=== PATIENT | female | born 1980 | race Caucasian/White ===

== ENCOUNTER 2023-10-04 08:21 | Emergency (ER) | payer SELFPAY ==
[2023-10-04 08:28] VITALS: BP 136/81; PULSE 66; RESP 16; TEMP 36.4; O2SAT 99
--- NOTE | 2023-10-04 09:01 | ED.EAR ---
HPI - Ear Problem General Chief complaint: Ear Stated complaint: Left Ear Pain Time Seen by Provider: 10/04/23 09:01 Source: patient, RN notes reviewed and old records reviewed Mode of arrival: ambulatory Limitations: no limitations History of Present Illness HPI Narrative: 43-year-old female to [facility] for complaint of left ear discomfort that started six days ago. Patient states that sensation was initially a tickle that first morning. Patient went to a water park later that today. patient states that on Friday she poured alcohol into her ear and attempt to treat it. Patient states that starting yesterday she noticed decrease in hearing and achiness in her ear. Patient denies fever, sore throat, headache, recent illness, cough, shortness of breath, allergies. Respirations even and nonlabored. Patient speaking in full sentences without difficulty. Patient able to tolerate fluids by mouth. No signs of acute distress. Related Data Home Medications Medication Instructions Recorded Confirmed levonorgestrel 21 mcg/24 hr (up to 1 device intrauterine ONCE 10/04/23 10/04/23 8 years) 52 mg intrauterine device (Mirena) Allergies Allergy/AdvReac Type Severity Reaction Status Date / Time No Known Allergies Allergy Verified 10/04/23 08:44 Review of Systems Review of Systems: All systems reviewed & are unremarkable except as noted in HPI and below Constitutional: Constitutional: Reports no additional constitutional complaints Eyes: Eyes: Reports no additional eye complaints ENT: Reports as per HPI and Reports otalgia Cardiovascular: Cardiovascular: Reports no additional cardiovascular complaints, Denies chest pain and Denies dyspnea Respiratory: Respiratory: Reports no additional respiratory complaints, Denies cough and Denies dyspnea Musculoskeletal: Musculoskeletal: Reports no additional musculoskeletal complaints Neurologic: Reports system reviewed and no additional complaints, except as documented Psychiatric: Psychiatric: Reports no additional psychiatric complaints PMFSH Comments At the time of my signature, I reviewed and agree with the nursing past medical, surgical, social, and family history. There is no relevant family history pertinent to the patient complaint. Exam Const: General: cooperative, healthy appearing, comfortable, no acute distress, alert and well nourished Nutritional Appearance: well nourished Orientation/consciousness: patient oriented x3 Limitations: no limitations HENMT: Head: normal to inspection Ears: Abnormal EAC present erythema on the left, edema on the left, EAC tenderness on the left and otic discharge purulent and TM abnormal bulging on the right, with fluid behind the TM on the right and with loss of landmarks on the right Face/Nose/Sinus: Normal external nose present, Normal nares present, normal facial exam, No erythema and No edema Face and sinus: normal facial exam, no erythema and no edema Mouth: Yes Normal oral and palatal mucosa present Throat: postnasal drainage Eyes: General: appearance normal, both eyes and all related structures Neck: Neck: normal visual inspection, full ROM and no meningeal signs Lymphatic: no lymphadenopathy noted and no lymphedema noted Chest: Chest palpation & inspection: normal inspection of the chest Resp: Effort & Inspection: normal respiratory effort and able to speak in complete sentences Auscultation: clear to auscultation bilaterally Cardio: Jugular venous distension: no JVD Rate: regular rate Rhythm: regular rhythm Back/Spine/Pelvis: Cervical Spine: cervical ROM normal Skin: General skin exam: normal color, no rashes or lesions noted and turgor normal Neuro: General: patient oriented x3, gait normal, moves all extremities and no meningeal signs Speech: normal speech Gait exam (Neuro): Normal gait present Extrem: General: normal to inspection and full ROM Psych: Appearance: grossly normal and well kempt Cour
== END 2023-10-04 09:20 | disposition home or self-care (01) ==
PROVIDERS: Emergency Provider Nurse Practitioner Family
DX: H66.93 Otitis media, unspecified, bilateral (principal)
CPT/HCPCS: 99213; G0463

== ENCOUNTER 2024-10-17 12:05 | Emergency (ER) | payer SELFPAY ==
--- OUTSIDE RECORDS SUMMARY | 2024-10-17 12:08 | XMS_ITS | Encounter Summary ---
Author Organization [facility] Address [address] [place] [address] Phone Care Team Providers Care Meter Calibrator Name Role Phone Neptali Bryan MD Primary Care Provider +- [phone] Iabn Cedeno MD Unavailable [phone] Encounter Details Date Type Department Care Team (Late st Contact Info) Description 12/11/2016 Orders Only [facility] [address] [place] [address] Sol Ennis MA Mass of breast, right (Primary Dx) Social History Tobacco Use Types Packs/Day Years Used Date Smoking Tobacco: Former Cigarettes Q uit: 12/14/2007 Alcohol Use Standard Drinks/Week Comments Yes 0 (1 standard drink = 0.6 oz pur e alcohol) Comments Unknown Sex and Gender Information Value Date Recorded Sex Assigned at Not on file 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
--- OUTSIDE RECORDS SUMMARY | 2024-10-17 12:08 | XMS_ITS | Continuity of Care Document ---
Author Organization [facility] Address [address] [place] [address] [address] [place] [address] Phone Care Team Providers Care Supervisor Operations Name Role Phone Lugo TAVON/Lida DE LA CRUZMacey Unavailable Kathleen vailable Procedures Procedure Date Progress Note Therapeutic Exercise Therapeutic Activities Neuromuscular Re-Ed Manual Therapy Hot or Cold Pack Therapeutic Exercise Therapeutic Activities Neuromuscular Re-Ed Manual Therapy Hot or Cold Pack Therapeutic Exercise Therapeutic Activities Neuromuscular Re-Ed Manual Therapy Hot or Cold Pack Syd Straps 2 Therapeutic Exercise Therapeutic Activities Neuromuscular Re-Ed Manual Therapy Hot or Cold Pack Therapeutic Exercise Therapeutic Activities Neuromuscular Re-Ed Progress Note Therapeutic Exercise Therapeutic Activities Neuromuscular Re-Ed Hot or Cold Pack Syd Straps 2 Therapeutic Exercise Therapeutic Activities Neuromuscular Re-Ed Hot or Cold Pack Therapeutic Exercise Therapeutic Activities Neuromuscular Re-Ed Hot or Cold Pack Therapeutic Exercise Therapeutic Activities Neuromuscular Re-Ed Hot or Cold Pack Therapeutic Exercise Therapeutic Activities Neuromuscular Re-Ed Hot or Cold Pack Therapeutic Exercise Therapeutic Activities Neuromuscular Re-Ed Hot or Cold Pack Progress Note Therapeutic Exercise Therapeutic Activities Neuromuscular Re-Ed Hot or Cold Pack Therapeutic Exercise Therapeutic Activities Neuromuscular Re-Ed Hot or Cold Pack OT Evaluation Moderate Complexity Therapeutic Exercise Hot or Cold Pack Advance Directives Directive Yes / No Effective Date File Name No Information Encounters Encounter Description Practice Location Reason(s) For Visit Diagnoses Date Provider Providers Copied on Encounter [facility], [place], [id number], [place] tel:[phone] [place] Pain in right handStiffness of right hand, not elsewhere classifiedEffusio n, right handWeaknessDisp fx of prox phalanx of r lit fngr, 7thD 9 Brittney Choudhury. [address] [facility], [address], [place], [facility], [place]. tel:[phone] Referring Provider: Hermila Willard, [address] [place] [address] [address], [place], [address]. tel:[phone] [facility], [place], [place], [id number], tel:[phone] [facility] Pain in right handStiffness of right hand, not elsewhere classifiedEffusio n, right handWeaknessDisp fx of prox phalanx of r lit fngr, 7thD Apr-0 5-201 9 Lugo Macey. [address] [facility], [address], [place], [address], [place]. tel:[phone] Referring Provider: Hermila Willard, [address] [place] [address] [address], [place], [address]. tel:[phone] [facility], [address], [place], [place], [id number], [place] tel:[phone] [facility] Pain in right handStiffness of right hand, not elsewhere classifiedEffusio n, right handWeaknessDisp fx of prox phalanx of r lit fngr, D Jun-2 2-201 9 Lugo Macey. [address] [place] [address], [address], [place], [address], [place]. tel:[phone] Referring Provider: Hermila Willard, [address] [place] [address] [address], [place], [address]. tel:[phone] [facility] [address], [place], [place], [id number], [place] tel:[phone] [facility] Pain in right handStiffness of right hand, not elsewhere classifiedEffusio n, right handWeaknessDisp fx of prox phalanx of r lit fngr, Jun-2 0-201 9 Janee Damian. [address] [place] [address], [address], [place], [address], [place]. tel:[phone] Referring Provider: Hermila Willard, [address] [place] [address] [address], [place], [address]. tel:[phone] [facility], [place], [place], [address], [place] tel:[phone] [facility] Pain in right handStiffness of right hand, not elsewhere classifiedEffusio n, right handWeaknessDisp fx of prox phalanx of r lit fngr, D Jun-1 5-201 9 Lugo Macey. [address] [place] [address], [address], [place], [address], [place]. tel:[phone] Referring Provider: Hermila Willard [address] [place] [address] [address], [place], [address]. tel:[phone] [facility], [place], [place], [address], [place] tel:[phone] [facility] Pain in right handStiffness of right hand, not elsewhere classifiedEffusio n, right handWeaknessDisp fx of prox phalanx of r lit fngr, D Jun-0 8-201 9 Lugo Macey. [address] [facility], [address], [place], [address], [place]. tel:[phone] Referring Provider: Hermila Willard [address] [place] [address] [address], [place], [address]. tel:[phone] [facility], [place], [place], [address], [place] tel:[phone] [facility] Pain in right handStiffness of right hand, not elsewhere classifiedEffusio n, right handWeaknessDisp fx of prox phalanx of r lit fngr, Jun-0 1-201 9 Lugo Macey. [address] [place] [address], [address], [place], [address], [place]. tel:[phone] Referring Provider: Hermila Willard [address] [place] [address] [address], [place], [address]. tel:[phone] [facility], [place], [place], [id number], [place] tel:[phone] [facility] Pain in right handStiffness of right hand, not elsewhere classifiedEffusio n, right handWeaknessDisp fx of prox phalanx of r lit fngr, 2 6201 9 Lugo Macey. [address] [facility], [address], [place], [address], [place]. tel:[phone] Referring Provider: Hermila Willard [address] [place] [address] [address], [place], [address]. tel:[phone] [facility], [place], [place], [id number], [place] tel:[phone] [facility] Pain in right handStiffness of right hand, not elsewhere classifiedEffusio n, right handWeaknessDisp fx of prox phalanx of r lit fngr, 9 Lugo Macey. [address] [facility], [address], [place], [address], [place]. tel:[phone] Referring Provider: Hermila Willard [address] [place] [address] [address], [place], [address]. tel:[phone] [facility], [place], [place], [id number], [place] tel:[phone] [facility] Pain in right handStiffness of right hand, not elsewhere classifiedEffusio n, right handWeaknessDisp fx of prox phalanx of r lit fngr, 9 Lugo Macey. [address] [place] [address], [address], [place], [address], [place]. tel:[phone] Referring Provider: Hermila Willard [address] [place] [address] [address], [place], [address]. tel:[phone] [facility], [place], [place], [address], [place] tel:[phone] [facility] Pain in right handStiffness of right hand, not elsewhere classifiedEffusio n, right handWeaknessDisp fx of prox phalanx of r lit fngr, 9 Lugo Macey. [address] [place] [address], [address], [place], [address], [place]. tel:[phone] Referring Provider: Hermila Willard [address] [place] [address] [address], [place], [address]. tel:[phone] [facility], [place], [place], [address], [place] tel:[phone] [facility] Pain in right handStiffness of right hand, not elsewhere classifiedEffusio n, right handWeaknessDisp fx of prox phalanx of r lit fngr, 8201 9 Lugo Macey. [address] [place] [address], [address], [place], [facility], . tel:[phone] Referring Provider: Hermila Willard [address] [place] [address] [address], [place], [facility]. tel:[phone] [facility] [facility], [place], [place], [address], [place] tel:[phone] [facility] Pain in right handStiffness of right hand, not elsewhere classifiedEffusio n, right handWeaknessDisp fx of prox phalanx of r lit fngr, 6-201 9 Lugo Macey. [address] [place] [address], [facility] [address], [place], [facility], [place]. tel:[phone] Referring Provider: Hermila Willard [address] [place] [address] [address], [place], [address]. tel:[phone] [facility], [place], [place], [address], [place] tel:[phone] [facility] Pain in right handStiffness of right hand, not elsewhere classifiedEffusio n, right handWeaknessDisp fx of prox phalanx of r lit fngr, 4201 9 Lugo Macey. [address] [place] [address], [address], [place], [facility], [place]. tel:[phone] Referring Provider: Hermila Willard [address] [place] [address] [address], [place], [address]. tel:[phone] Family History Family Member Type Diagnosis Age At Onset No Information Payers Payer name Insurance type Covered republican ID Authoriza perez(s) [facility] [id number] Social History Type Description Quantity Date Captured Comments Sex Female Smoking Status No Information Chief Complaint And Reason For Visit No Information Reason For Referral Reason For Referral No Information History Of Present Illness Encounter Date Complaint History Of Prese nt Illness No Information Functional Status Date Functional Assessmen t No Information Instructions Date Instruction Additional Infor mation No Information Assessments Type Assessment Date No Information Patient Care Teams Name Effective Dates (start - stop) Status Members No Information
--- OUTSIDE RECORDS SUMMARY | 2024-10-17 12:08 | XMS_ITS | Referral Summary ---
Author Organization [facility] [address] Address [address] [place] [address] Phone Care Team Providers Care Harbormaster Name Role Phone Neptali Bryan MD Primary Care Provider [phone] Iban Cedeno MD Unavailable [phone] Allergies No known active allergies Medications levonorgestrel (MIRENA) IUD insert by Intrauterine route 0 0 2 Active cetirizine (ZyrTEC) 10 mg tablet Take 10 mg by mouth daily as needed for allergies. Active acetaminophen (TYLENOL) 500 mg tablet Take 500 mg by mouth every 6 (six) hours as needed for pain. Active levothyroxine (SYNTHROID) 88 mcg tablet TAKE 1 TABLET BY MOUTH EVERY DAY 30 tablet 1 1 Active Active Problems Problem Noted Date Diagnosed Date Closed displaced fracture of proximal phalanx of right little finger 05/07/2018 Overview (05/07/2018): Added automatically from request for surgery [id number] Obstructive sleep apnea syndrome 08/13/2013 Overview (07/18/2016): MARLEN on CPAP Assessment & Plan (08/29/2017 2:16 PM CDT): She is using her cpap machine She is using it And benefitting from that Depression 12/09/2012 Overview (07/18/2016): Depression Mixed hyperlipidemia 04/20/2012 Overview (07/17/2016): Hyperlipidemia Acquired hypothyroidism 09/10/2011 Overview (07/18/2016): Hypothyroid Immunizations Immunization Administration Dates Next Due DTaP 11/16/1986,07/20/1985,1982 ,1982 Hep A, Adult 03/17/2012,10/01/2011,08/20/2011 Hep B Vaccine 08/20/2011,07/21/1996,03/03/1996 ,01/14/1996 MMR 12/08/1991,10/18/1983 Td, adsorbed 08/18/2019,01/13/1998 Tdap 06/22/2008 Social History Tobacco Use Types Packs/Day Years Used Date Smoking Tobacco: Former Smokeless Tobacco: Never Alcohol Use Standard Drinks/Week Comments Yes 0 (1 standard drink = 0.6 oz pur e alcohol) PHQ-2 Answer Date Recorded PHQ-2 Total Score (If total score is 3 or more points, staff should administer the PHQ-9) 0 08/18/2019 Comments Unknown Sex and Gender Information Value Date Recorded Sex Assigned at Not on file 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 Gender Identity Not on file Sexual Orientation Not on file Last Filed Vital Signs Vital Sign Reading Time Taken Comments Blood Pressure 120/72 08/18/2019 2:29 PM CDT Pulse 64 08/18/2019 2:29 PM CDT Temperature 36.1 C (96.9 F) 08/18/2019 2:29 PM CDT Respiratory Rate 16 08/18/2019 2:29 PM CDT Oxygen Saturation 97% 08/18/2019 2:29 PM CDT Inhaled Oxygen Concentration - - Weight 114.9 kg (253 lb 6.4 oz) 08/18/2019 2:29 PM CDT Height 163.8 cm (5' 4.5) 08/18/2019 2:29 PM CDT Body Mass Index 42.82 08/18/2019 2:29 PM CDT Plan of Treatment Not on file Medical Devices Implanted Type Area Nuclear Weapons Mechanical Specialist Device Identifier Shelf Expiration Date Model / Serial / Lot .214.108 Synthes 8mm Cortical Screw Implanted:Qty: 1 on 05/11/2018 by Aldo Hdez MD at [facility] Screw Right: Little [employer]inger Synthe[employer] I [id number] .214.108 / / [id number] Synthes 7mm Cortical Screw Implanted:Qty: 1 on 05/11/2018 by Aldo Hdez MD at [facility] Right: [employer] I [id number] / / Care Teams Harbormaster Relationship Specialty Start Date End Date Neptali Bryan MD [address] [place] [address] PCP - General 07/12/16 Iban Cedeno MD [address] [place] [address] Hematology Supervisor Obstetrics and Gynecology 08/29/17
--- OUTSIDE RECORDS SUMMARY | 2024-10-17 12:08 | XMS_ITS | Clinical Summary ---
Author Organization [facility] Address [address] [place] [address] Phone Care Team Providers Care Draw String Knotter Name Role Phone Provider, Unknown Primary Care Provider Unavaila ble Allergies No known active allergies Medications levothyroxine (SYNTHROID) 50 MCG Tablet Take 50 mcg by mouth daily. Active PARoxetine (PAXIL) 20 MG Tablet Take 20 mg by mouth daily. Active Active Problems No known active problems Social History Tobacco Use Types Packs/Day Years Used Date Smoking Tobacco: Former Cigarettes Q uit: 06/14/2007 Smokeless Tobacco: Never Alcohol Use Standard Drinks/Week Comments No 0 (1 standard drink = 0.6 oz pur e alcohol) Comments No Sex and Gender Information Value Date Recorded Sex Assigned at Not on file Legal Sex Female 8:42 PM CDT Gender Identity Not on file Sexual Orientation Not on file Last Filed Vital Signs Vital Sign Reading Time Taken Comments Blood Pressure 108/60 12/09/2020 11:32 AM CDT Pulse 57 12/09/2020 11:32 AM CDT Temperature 36.8 C (98.2 F) 12/09/2020 11:32 AM CDT Respiratory Rate 16 12/09/2020 11:32 AM CDT Oxygen Saturation 98% 12/09/2020 11:32 AM CDT Inhaled Oxygen Concentration - - Weight 136.1 kg (300 lb) 06/14/2015 12:32 PM PRODUCT SAFETY ENGINEER Height 165.1 cm (5' 5) 06/14/2015 12:32 PM PRODUCT SAFETY ENGINEER Body Mass Index 49.92 06/14/2015 12:32 PM PRODUCT SAFETY ENGINEER Plan of Treatment Health Maintenance Due Date Last Done Comments Hepatitis C Virus (HCV) Screening 1982 Human Papillomavirus (HPV) Immunization (1 - 3-dose series) 1997 Hepatitis B Immunization (2 of 3 - Hep B Twinrix 3-dose series) 09/17/2011 08/20/2011 SARS-COV-2 Immunization ( season) 2023 Influenza Immunization (Season Ended) 2024 02/07/2017, 04/17/2016, 02/13/2015, Additional history exists Respiratory Syncytial Virus (RSV) Immunization (Adult) (1 - 1-dose 75+ series) 2057 TdaP Immunization Completed 06/22/2008 DTaP/Tdap/Td Immunization Discontinued 08/18/2019, 02/2009 Meningococcal Immunization (ACWY) Aged Out No longer eligible based on patient's age to complete this topic Pneumococcal Immunization Combined Aged Out No longer eligible based on patient's age to complete this topic Rotavirus Immunization Aged Out No lo nger eligible based on patient's age to complete this topic Care Teams Draw String Knotter Relationship Specialty Start Date End Date Provider, Unknown UNKNOWN PCP - General 12/09/20
--- OUTSIDE RECORDS SUMMARY | 2024-10-17 12:08 | XMS_ITS | Clinical Summary ---
Author Organization [facility] [address] Address [address] [place] [address] Phone Care Team Providers Care Outcomes Analyst Name Role Phone Neptali Bryan MD Primary Care Provider [phone] Iban Cedeno MD Unavailable +-[phone] Allergies No known active allergies Medications [...] (05/07/2018): Added automatically from request for surgery [id number] Obstructive sleep apnea syndrome 08/13/2013 Overview (07/18/2016): [...] MMR 12/08/1991,10/18/1983 Td, adsorbed 08/18/2019,01/13/1998 Tdap 06/22/2008 Surgical History Surgery Date Site/Laterality Comments SECTION 04/14/2009 - 04/13/2010 section OTHER SURGICAL HISTORY 04/14/2002 - 04/13/2003 R Breast biopsy(BENIGN) SECTION Medical History Medical History Date Comments Thyroid disease Depression Sleep apnea CPAP it works f or me; last sleep study 2012 Family History Medical History Relation Name Comments Hypertension Father Hypertension; Coronary artery disease Maternal Grandfather Coronary artery disease, premature; Leukemia Maternal Grandmother Cancer -leukemia; Thyroid disease Mother Thyroid diso rder; Other Other 1 Polycythemia ru bra vera; Hyperlipidemia Other 2 Family histor y of Hyperlipidemia; Relation Name Status Comments Father Maternal Grandfather Maternal Grandmother Mother Other 1 Other 2 Social History Tobacco Use Types Packs/Day Years [...] on file 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 Gender Identity Not on file Sexual Orientation Not on file Obstetrics History Last Filed Vital Signs Vital Sign Reading [...] on file Medical Devices Implanted Type Area Registered Nurse Behavioral Health Device Identifier Shelf Expiration Date Model / Serial / Lot 214.108 Synthes 8mm Cortical Screw Implanted:Qty: 1 on 05/11/2018 by Aldo Hdez MD at [facility] Screw Right: [employer] Synthe[employer] I [id number] / / [id number] Synthes 7mm Cortical Screw Implanted:Qty: 1 on 05/11/2018 by Aldo Hdez MD at [facility] Right: [employer] I [id number] / / Care Teams Outcomes Analyst Relationship Specialty Start Date End Date Neptali Bryan MD [address] [place] [address] PCP - General 07/12/16 Iban Cedeno MD [address] [place] [address] Health Science Writer Obstetrics and Gynecology 08/29/17
--- OUTSIDE RECORDS SUMMARY | 2024-10-17 12:09 | XMS_ITS | Continuity of Care Document ---
Author Organization [facility] Address [address] [place] [address] [address] [place] [address] Phone Care Team Providers Care Sharepoint Trainer Name Role Phone Lugo TAVON/Lida DE LA [...] Diagnoses Date Provider Providers Copied on Encounter [facility], [place], [id number], [place] tel:[phone] [place] Pain in right handStiffness of right hand, not elsewhere classifiedEffusio n, right handWeaknessDisp fx of prox phalanx of r lit fngr, 7thD 9 Brittney Choudhury. [address] [facility], [address], [place], [facility], [place]. tel:[phone] Referring Provider: Hermila Willard, [address] [place] [address] [address], [place], [address]. tel:[phone] [facility], [place], [place], [id number], tel:[phone] [place] Pain in right handStiffness of right hand, not elsewhere classifiedEffusio n, right handWeaknessDisp fx of prox phalanx of r lit fngr, 7thD Apr-0 5-201 9 Lugo Macey. [address] [facility], [address], [place], [address], [place]. tel:[phone] Referring Provider: Hermila Willard, [address] [place] [address] [address], [place], [address]. tel:[phone] [facility], [address], [place], [place], [id number], [place] tel:[phone] [place] Pain in right handStiffness of right hand, not elsewhere classifiedEffusio n, right handWeaknessDisp fx of prox phalanx of r lit fngr, D Jun-2 2-201 9 Lugo Macey. [address] [place] [address], [address], [place], [address], [place]. tel:[phone] Referring Provider: Hermila Willard, [address] [place] [address] [address], [place], [address]. tel:[phone] [facility] [address], [place], [place], [id number], [place] tel:[phone] [place] Pain in right handStiffness of right hand, not elsewhere classifiedEffusio n, right handWeaknessDisp fx of prox phalanx of r lit fngr, Jun-2 0-201 9 Janee Damian. [address] [place] [address], [address], [place], [address], [place]. tel:[phone] Referring Provider: Hermila Willard, [address] [place] [address] [address], [place], [address]. tel:[phone] [facility], [place], [place], [id number], [place] tel:[phone] [place] Pain in right handStiffness of right hand, not elsewhere classifiedEffusio n, right handWeaknessDisp fx of prox phalanx of r lit fngr, D Jun-1 5-201 9 Lugo Macey. [address] [place] [address], [address], [place], [address], [place]. tel:[phone] Referring Provider: Hermila Willard [address] [place] [address] [address], [place], [address]. tel:[phone] [facility], [place], [place], [id number], [place] tel:[phone] [place] Pain in right handStiffness of right hand, not elsewhere classifiedEffusio n, right handWeaknessDisp fx of prox phalanx of r lit fngr, D Jun-0 8-201 9 Lugo Macey. [address] [facility], [address], [place], [address], [place]. tel:[phone] Referring Provider: Hermila Willard [address] [place] [address] [address], [place], [address]. tel:[phone] [facility], [place], [place], [id number], [place] tel:[phone] [place] Pain in right handStiffness of right hand, not elsewhere classifiedEffusio n, right handWeaknessDisp fx of prox phalanx of r lit fngr, Jun-0 1-201 9 Lugo Macey. [address] [place] [address], [address], [place], [address], [place]. tel:[phone] Referring Provider: Hermila Willard [address] [place] [address] [address], [place], [address]. tel:[phone] [facility], [place], [place], [id number], [place] tel:[phone] [place] Pain in right handStiffness of right hand, not elsewhere classifiedEffusio n, right handWeaknessDisp fx of prox phalanx of r lit fngr, 2 6201 9 Lugo Macey. [address] [facility], [address], [place], [address], [place]. tel:[phone] Referring Provider: Hermila Willard [address] [place] [address] [address], [place], [address]. tel:[phone] [facility], [place], [place], [id number], [place] tel:[phone] [place] Pain in right handStiffness of right hand, not elsewhere classifiedEffusio n, right handWeaknessDisp fx of prox phalanx of r lit fngr, 9 Lugo Macey. [address] [facility], [address], [place], [address], [place]. tel:[phone] Referring Provider: Hermila Willard [address] [place] [address] [address], [place], [address]. tel:[phone] [facility], [place], [place], [id number], [place] tel:[phone] [place] Pain in right handStiffness of right hand, not elsewhere classifiedEffusio n, right handWeaknessDisp fx of prox phalanx of r lit fngr, 9 Lugo Macey. [address] [place] [address], [address], [place], [address], [place]. tel:[phone] Referring Provider: Hermila Willard [address] [place] [address] [address], [place], [address]. tel:[phone] [facility], [place], [place], [id number], [place] tel:[phone] [place] Pain in right handStiffness of right hand, not elsewhere classifiedEffusio n, right handWeaknessDisp fx of prox phalanx of r lit fngr, 9 Lugo Macey. [address] [place] [address], [address], [place], [address], [place]. tel:[phone] Referring Provider: Hermila Willard [address] [place] [address] [address], [place], [address]. tel:[phone] [facility], [place], [place], [id number], [place] tel:[phone] [place] Pain in right handStiffness of right hand, not elsewhere classifiedEffusio n, right handWeaknessDisp fx of prox phalanx of r lit fngr, 8201 9 Lugo Macey. [address] [place] [address], [address], [place], [facility], . tel:[phone] Referring Provider: Hermila Willard [address] [place] [address] [address], [facility]. tel:[phone] [facility] [facility] [address], [place], [place], [address], [place] tel:[phone] [place] Pain in right handStiffness of right hand, not elsewhere classifiedEffusio n, right handWeaknessDisp fx of prox phalanx of r lit fngr, 6-201 9 Lugo Macey. [address] [place] [address], [address], [place], [facility], [place]. tel:[phone] Referring Provider: Hermila Willard [address] [place] [address] [address], [address]. tel:[phone] [facility], [place], [place], [address], [place] tel:[phone] [place] Pain in right handStiffness of right hand, not elsewhere classifiedEffusio n, right handWeaknessDisp fx of prox phalanx of r lit fngr, 4201 9 Lugo Macey. [address] [place] [address], [address], [place], [facility], [place]. tel:[phone] Referring Provider: Hermila Willard [address] [place] [address] [address], [address]. tel:[phone] Family History Family Member Type Diagnosis Age At Onset No Information Payers Payer name Insurance type Covered democrat ID Authoriza perez(s) [facility] [id number] Social History Type Description Quantity Date Captured [...]
[2024-10-17 12:17] VITALS: BP 132/75; PULSE 62; RESP 20; TEMP 37.1; O2SAT 100
--- NOTE | 2024-10-17 12:29 | ED_ITS ---
HPI - Ear Problem General Chief complaint: Ear Stated complaint: Right Ear Problem patient presents to [facility] with complaints of right ear pain right hand over the last day. Patient does report recent trip to a water park and concern she has swimmer's ear. Patient noted having swimmer's ear last year. No medication around these attempts of the symptoms. Denies other symptoms including cough, nasal congestion, headache, dizziness, drainage from the ear, cough, sore throat. Related Data Home Medications ?Medication ?Instructions ?Recorded ?Confirmed ?Last Taken ?Type levonorgestrel (Mirena) 1 device intrauterine ONCE 10/04/23 10/04/23 Unknown History Allergies Allergy/AdvReac Type Severity Reaction Status Date / Time No Known Allergies Allergy Verified 10/04/23 08:44 Review of Systems Constitutional: Constitutional: Reports as per HPI, Denies chills, Denies fatigue, Denies fever(s) and Denies weakness Eyes: Eyes: Reports as per HPI ENT: Reports as per HPI, Denies dysphagia, Denies vertigo, Denies dizziness, Denies epistaxis, Denies nasal congestion and Denies sore throat Comments: right ear pain Cardiovascular: Cardiovascular: Reports no additional cardiovascular complaints Respiratory: Respiratory: Reports as per HPI, Denies chest congestion and Denies cough Gastrointestinal: Gastrointestinal: Reports no additional gastrointestinal complaints Genitourinary: Genitourinary: Reports no additional female genitourinary complaints Musculoskeletal: Musculoskeletal: Reports no additional musculoskeletal complaints Integumentary/Breasts: Skin/Breast: Reports system reviewed and no additional complaints, except as docu Neurologic: Reports system reviewed and no additional complaints, except as documented Psychiatric: Psychiatric: Reports no additional psychiatric complaints Endocrine: Endocrine: Reports no additional endocrine complaints Hematologic/Lymphatic: Hematologic/Lymphatic: Reports no additional hematologic/lymphatic complaints Allergic/Immunologic: Allergic/Immunologic: Reports as per HPI Comments: seasonal allergies Exam Const: General: healthy appearing and no acute distress Nutritional Appearance: well nourished Orientation/consciousness: patient oriented x3 Limitations: no limitations HENMT: Head: normal to inspection Ears: external ears abnormal ( tragus rig ht ear is tender to touch. Left ear normal) and TM's normal bilaterally Face/Nose/Sinus: Normal external nose present and Normal nares present Face and sinus: normal facial exam and sinuses nontender Mouth: Yes Normal oral and palatal mucosa present Throat: posterior oropharynx normal Other: right ear canal moderate swelling with moderate erythema and large amounts of purulence drainage Neck: Neck: no lymphadenopathy Resp: Effort & Inspection: normal respiratory effort Auscultation: clear to auscultation bilaterally Cardio: Rate: regular rate Rhythm: regular rhythm Skin: General skin exam: normal color Rashes: no rashes Wounds: no wounds Neuro: General: patient oriented x3 Speech: normal speech Gait exam (Neuro): Normal gait present Psych: Mental Status: mental status grossly normal Affect: normal affect Attitude: cooperative Course Course Level of Care: Express Care Visit Vital Signs Vital signs: Vital Signs Temperature 98.7 F 10/17/24 12:17 Pulse Rate 62 10/17/24 12:17 Respiratory Rate 20 10/17/24 12:17 Blood Pressure 132/75 10/17/24 12:17 Pulse Oximetry 100 10/17/24 12:17 Oxygen Delivery Room Air 10/17/24 12:17 Temperature 98.7 F 10/17/24 12:17 Pulse Rate 62 10/17/24 12:17 Respiratory Rate 20 10/17/24 12:17 Blood Pressure 132/75 10/17/24 12:17 Pulse Oximetry 100 10/17/24 12:17 Oxygen Delivery Room Air 10/17/24 12:17 Medical Decision Making MDM Narrative Medical decision making narrative: right swimmer's ear noted. Educated patient on ear drops Discharge instructions reviewed with patient, as well as provided in writing per nursing staff. The instructions also include specific and strict return/GO TO THE ER as well as f/u information. All questions have been answered, and the patient deny any further questions with discharge and discharge plan. Differential Diagnosis Differential Diagnosis: otitis media, otitis externa, sinusitis Medical Records Medical records reviewed: Yes I reviewed the external patient's medical records. Vital Signs Vital Signs: Vital Signs Temperature 98.7 F 10/17/24 12:17 Pulse Rate 62 10/17/24 12:17 Respiratory Rate 20 10/17/24 12:17 Blood Pressure 132/75 10/17/24 12:17 Pulse Oximetry 100 10/17/24 12:17 Oxygen Delivery Room Air 10/17/24 12:17 Temperature 98.7 F 10/17/24 12:17 Pulse Rate 62 10/17/24 12:17 Respiratory Rate 20 10/17/24 12:17 Blood Pressure 132/75 10/17/24 12:17 Pulse Oximetry 100 10/17/24 12:17 Oxygen Delivery Room Air 10/17/24 12:17 Discharge Plan Discharge Clinical Impression: Otitis externa Patient Disposition: Home Condition: Stable Instructions: Antibiotic Form, Swimmer's Ear (ED) Additional Instructions: -Ear drops as directed for 7-10 days until the pain and swelling are gone. -When administer drug into the affected ear; make sure to ly down with the affected ear facing upward, message the ear canal to help the drops reach the medial end of the canal, then remain in that position for at least 5 mintues. -Avoid using cotton tipped applicator for ears cleaning - add Flonase nasal spray daily and both ears to help with symptoms -Avoid exposing swimming or exposing the affected ear to water during the treatment period Take or alternate tylenol or ibuprofen every 4 - 6 hours if needed for pain. Follow up with primary care provider if condition is not improving in 7 days or sooner if there is new concern. Patient Language: Italian Prescriptions: New ciprofloxacin-dexamethasone 0.3-0.1 % drops,suspension 4 drp RIGHT EAR Q12H 7 Days Qty: 7.5 0RF No Action Mirena 21 mcg/24 hr (8 yrs) 52 mg Intrauterine Device 1 device INTRAUTERINE ONCE Rx Instructions: as a single dose amoxicillin 875 mg tablet 875 mg PO Q12H Qty: 20 0RF Follow-up/Referrals: PHYSICIAN,REEL SYSTEM OPERATOR [Primary Care Provider] - Time of Disposition: 12:39
== END 2024-10-17 12:44 | disposition home or self-care (01) ==
PROVIDERS: Emergency Provider Nurse Practitioner Family
DX: H60.91 Unspecified otitis externa, right ear (principal)
CPT/HCPCS: 99213; G0463